=== PATIENT | female | born 1940 | race Caucasian/White ===

== ENCOUNTER → 2016-12-02 | Outpatient (CLI) | payer MEDICARE ==
--- NOTE | 2016-12-03 10:50 | MM ---
Reason for exam: clinical finding. Last mammogram was performed 1 year and 1 month ago. History: Patient is postmenopausal and has history of other cancer at age 58. Family history of breast cancer in mother at age 38. Excisional biopsy of both breasts, 1979. Physical Findings: Nurse Summary: A 1cm nodule in the left breast at 1 o'clock (nurse santiago). MG 3D Diag Mammo W/Cad ADELAIDA Bilateral CC and MLO view(s) were taken. Prior study comparison: November 04, 2015, bilateral MG 3d screening mammo w/cad. October 24, 2014, right breast MG work up mamm w CAD RT. The breast tissue is heterogeneously dense. This may lower the sensitivity of mammography. Stable benign calcifications. There is chronic nodularity bilaterally. There is no dominant lesion. No significant new findings when compared with previous films. These results were verbally communicated with the patient and result sheet given to the patient on 12/02/16. ASSESSMENT: Incomplete: need additional imaging evaluation, BI-RAD 0 RECOMMENDATION: Ultrasound of the left breast.
--- NOTE | 2016-12-03 10:53 | USB ---
Reason for exam: clinical finding. History: Patient is postmenopausal and has history of other cancer at age 58. Family history of breast cancer in mother at age 38. Excisional biopsy of both breasts, 1979. US Breast LT Left breast ultrasound includes all four quadrants, the retroareolar region and axilla. Finding demonstrate a 0.4 x 0.5 x 0.2cm too small to characterize lesion at 1 o'clock. These results were verbally communicated with the patient and result sheet given to the patient on 12/02/16. ASSESSMENT: Benign, BI-RAD 2 RECOMMENDATION: Routine screening mammogram of both breasts in 1 year. Manage patient on a clinical basis.
== END | disposition home or self-care (01) ==
LOC: RADMAMWWP 13:41
PROVIDERS: ATTEND Family Medicine
DX: N63 Unspecified lump in breast (principal); N64.4 Mastodynia
CPT/HCPCS: 76641; G0204; G0279

== ENCOUNTER → 2017-04-26 | Outpatient (CLI) | payer MEDICARE ==
--- NOTE | 2017-04-26 09:24 | CT ---
EXAMINATION TYPE: CT brain wo con DATE OF EXAM: 04/26/2017 COMPARISON: NONE HISTORY: Headache CT DLP: 1064 mGycm Automated exposure control for dose reduction was used. FINDINGS: There is no acute intracranial hemorrhage or midline shift identified. There is diffuse ventricular a nd sulcal prominence consistent with diffuse age-related cerebral atrophy. There is low-attenuation in the periventricular white matter consistent with chronic small vessel ischemic change. Additionall y there are 3 old lacunar injuries within the right basal ganglia involving the caudate head measurin g 4.4 mm, the right lentiform nucleus measuring 3.4 mm, and the right lentiform nucleus measuring 3.5 mm. Left frontal lobe blas radiata lacunar injury is also seen. These are all CSF attenuated and c hronic. The globes are intact. There is near complete opacification of the left maxillary sinus despite left and right antrostomy defects. There is also seen medial complex occlusion. Michelle bullosa seen on the left. Remaining paranasal sinuses and mastoid air cells are well aerated. No middle ear cavity fluid . Atherosclerosis is seen of the intracranial vasculature. Calvarium is intact. IMPRESSION: 1. No acute intracranial hemorrhage or midline shift. 2. Near complete opacification of the left maxillary sinus with ostiomeatal occlusion despite postope rative change. 3. Multiple old bilateral lacunar injuries. 4. Diffuse age-related cerebral atrophy and chronic small vessel ischemic change, most commonly on th e basis of chronic microangiopathy.
== END | disposition home or self-care (01) ==
LOC: RADCTMAIN 08:28
PROVIDERS: ATTEND Family Medicine
DX: G31.9 Degenerative disease of nervous system, unspecified (principal); I67.82 Cerebral ischemia; I73.89 Other specified peripheral vascular diseases
CPT/HCPCS: 70450

== ENCOUNTER 2021-01-29 10:42 | Emergency (ER) | payer MEDICARE ==
[2021-01-29 10:59] VITALS: TEMP 98.1
[2021-01-29] MEDS ORDERED: MORPHINE SULFATE 2 MG/ML SYRINGE IM STA (11:09)
--- NOTE | 2021-01-29 12:11 | XR ---
EXAM TYPE: LUMBAR SPINE X RAY SERIES COMPARISON: NONE HISTORY: Pain TECHNIQUE: 4 views are submitted. FINDINGS: Diffuse osteopenia. Surgical clips right upper quadrant. Curvature of the spine. Grade 1 anterolisthe sis L4 on L5 and L5-S1 with multilevel facet arthropathy and severe degenerative disc disease. Vascul ar calcifications noted. There is a 4 mm retrolisthesis of L2 relative to L3. Mild superior endplate compression fracture deformity at L2 indeterminate age. IMPRESSION: 1. Multilevel severe degenerative disc disease and facet arthropathy at this level. There is a mild s uperior endplate compression deformity L2 of indeterminate age.
--- NOTE | 2021-01-29 12:14 | XR ---
EXAMINATION TYPE: XR Hip Bilateral and AP pelvis DATE OF EXAM: 01/29/2021 COMPARISON: NONE HISTORY: Pain TECHNIQUE: A single AP view of the pelvis is obtained. Two views of the bilateral hip are obtained. FINDINGS: There is no acute fracture/dislocation evident in the pelvis. Surgical clip in the pelvis. Osteitis pubis. SI joints symmetric. Degenerative change lower lumbar spine. IMPRESSION: 1. No acute fracture.
--- NOTE | 2021-01-29 12:18 | ED ---
Back Pain HPI - General Chief Complaint: Back Pain/Injury Stated Complaint: AMS Time Seen by Provider: 01/29/21 11:03 Source: family, RN notes reviewed Limitations: no limitations - History of Present Illness Initial Comments: Patient is an 80-year-old female that presents to the emergency room with low back and buttock pain. She is demented per son and is a poor historian. Son notes that fall was witnessed at the shop by one of the workers. Worker notes that patient fell on her but did not hit her head or loss consciousness. Son is also concerned for possible UTI as she has had in the past. Patient was otherwise well-appearing stated that her pain was very minimal. She denied chest pendulous breath headache nausea vomiting diarrhea constipation fever fatigue chills. - Related Data Home Medications Medication Instructions Recorded Confirmed Aspirin EC [Ecotrin Low Dose] 81 mg PO DAILY 12/23/14 12/23/14 Donepezil HCl 10 mg PO DAILY 12/23/14 12/23/14 Multivitamins, Thera [Multivitamin 1 tab PO DAILY 12/23/14 12/23/14 (formulary)] Tolterodine ER [Detrol LA] 2 mg PO DAILY 12/23/14 12/23/14 Citalopram Hydrobromide [CeleXA] 10 mg PO DAILY 06/09/20 10/05/20 Donepezil [Aricept] 10 mg PO DAILY 06/09/20 10/05/20 Meclizine [Antivert] 12.5 mg PO TID 06/09/20 10/05/20 amLODIPine [Norvasc] 5 mg PO DAILY 06/09/20 10/05/20 Atorvastatin Calcium [Lipitor] 10 mg PO DAILY 07/31/20 10/05/20 Acetaminophen Tab [Tylenol] 325 mg PO DAILY 10/05/20 10/05/20 Acetaminophen/Diphenhydramine 1 tab PO HS 10/05/20 10/05/20 [Tylenol PM 500-25mg] Methenamine/Sodium Salicylate [Azo 2 tab PO DAILY PRN 10/05/20 10/05/20 Urinary Tract Defense Tab] Primidone [Mysoline] 50 mg PO HS 10/05/20 10/05/20 QUEtiapine FUMARATE [SEROquel] 25 mg PO BID 10/05/20 10/05/20 Previous Rx's Medication Instructions Recorded Atorvastatin [Lipitor] 20 mg PO DAILY #30 tab 12/24/14 Omeprazole [PriLOSEC] 20 mg PO BID #60 capsule. 12/24/14 amLODIPine [Norvasc] 5 mg PO DAILY #30 tab 12/24/14 Aspirin EC [Ecotrin Low Dose] 81 mg PO DAILY #30 tablet. 06/11/20 Propranolol [Inderal] 10 mg PO TID #90 tab 06/12/20 Nitrofurantoin Monohyd/M-Cryst 100 mg PO Q12HR #10 cap 10/05/20 [Macrobid] Cephalexin [Keflex] 500 mg PO Q6HR #40 cap 01/29/21 Allergies Allergy/AdvReac Type Severity Reaction Status Date / Time latex Allergy Swelling Verified 01/29/21 11:09 Review of Systems ROS Statement: Those systems with pertinent positive or pertinent negative responses have been documented in the HPI. ROS Other: All systems not noted in ROS Statement are negative. Past Medical History Past Medical History: Asthma, Cancer, Chest Pain / Angina, Dementia, GERD/Reflux, Hyperlipidemia, Hypertension, Memory Impairment, Sleep Apnea/CPAP/BIPAP, Thyroid Disorder Additional Past Medical History / Comment(s): Recent episodes of agitated "spells", bronchitis, osteoporosis, urinary incontinence/cystocele/prolapse, severe GERD, CHELSEA but will not use device, thyroid nodule, skin cancer. COVID 02/14 History of Any Multi-Drug Resistant Organisms: None Reported Past Surgical History: Breast Surgery, Cholecystectomy, Hysterectomy, Joint Replacement Additional Past Surgical History / Comment(s): R breast benign lumpectomy, skin cancer removals, sinus surgery Past Anesthesia/Blood Transfusion Reactions: No Reported Reaction Past Psychological History: Anxiety, No Psychological Hx Reported Past Alcohol Use History: None Reported, Occasional Additional Past Alcohol Use History / Comment(s): Pt denies ever smoking. She has a glass of wine most evenings. - Past Family History Mother Family Medical History: Cancer Additional Family Medical History / Comment(s): Mother at 36 yrs from uterine/breast cancer. Father Family Medical History: Cancer Additional Family Medical History / Comment(s): Father of liver cancer in his 60s. General Exam Limitations: altered mental status (Pleasantly demented) General appearance: alert, in no apparent distress Head exam: Present: atraumatic, normocephalic, normal inspection Eye exam: Present: normal appearance, PERRL, EOMI. Absent: scleral icterus, conjunctival injection, periorbital swelling ENT exam: Present: normal exam, mucous membranes moist Neck exam: Present: normal inspection Respiratory exam: Present: normal lung sounds bilaterally. Absent: respiratory distress, wheezes, rales, rhonchi, stridor Cardiovascular Exam: Present: regular rate, normal rhythm, normal heart sounds. Absent: systolic murmur, diastolic murmur, rubs, gallop, clicks Extremities exam: Present: normal inspection, full ROM, normal capillary refill. Absent: tenderness, pedal edema, joint swelling, calf tenderness Back exam: Present: normal inspection. Absent: tenderness Neurological exam: Present: alert, oriented X3 Psychiatric exam: Present: normal affect, normal mood Skin exam: Present: warm, dry, intact, normal color. Absent: rash Course Vital Signs 01/29/21 10:54 Temperature 98.1 F Pulse Rate 66 Respiratory 16 Rate Blood Pressure 147/74 O2 Sat by Pulse 97 Oximetry Medical Decision Making - Medical Decision Making 80-year-old female status post fall onto her butt, weakness, no blood thinners. X-ray lumbar spine, x-ray of the bilateral hips and pelvis, 15 g Toradol, urinalysis ordered. X-rays negative for any acute fractures or dislocations possible L2 compression fracture age undetermined. Urinalysis shows large quantity his white blood cells and many bacteria. 1 g Rocephin ordered. Antibiotics sent to pharmacy. Case discussed with Dr. Brown, patient can discharge home. - Lab Data Lab Results 01/29/21 Range/Units 11:22 Urine Color Yellow Urine Appearance Cloudy H (Clear) Urine pH 6.0 (5.0-8.0) Ur Specific [place] 1.020 (1.001-1.035) Urine Protein Trace H (Negative) Urine Glucose (UA) Negative (Negative) Urine Ketones Negative (Negative) Urine Blood Negative (Negative) Urine Nitrite Positive H (Negative) Urine Bilirubin Negative (Negative) Urine Urobilinogen <2.0 (<2.0) mg/dL Ur Leukocyte Esterase Large H (Negative) Urine RBC 9 H (0-5) /hpf Urine WBC >182 H (0-5) /hpf Urine WBC Clumps Few H (None) /hpf Ur Squamous Epith Cells <1 (0-4) /hpf Urine Bacteria Many H (None) /hpf Urine Mucus Rare H (None) /hpf - Radiology Data Radiology results: report reviewed, image reviewed X-ray of the bilateral hips and pelvis: No acute fracture. X-ray of the lumbar spine: Multilevel severe degenerative disc disease and facet arthropathy at a slow. There is a mild superior endplate compression deformity L2 of indeterminate age. Disposition Clinical Impression: Mechanical back pain, Fall, Urinary tract infection Disposition: HOME SELF-CARE Condition: Stable Instructions (If sedation given, give patient instructions): Acute Low Back Pain (ED), Urinary Tract Infection in Women (ED) Additional Instructions: Please return to the Emergency Department if symptoms worsen or any other concerns. Follow-up with primary care 1-2 days. Take antibiotics as prescribed. Is patient prescribed a controlled substance at d/c from ED?: No Referrals: Laura Perez MD [Primary Care Provider] - 1-2 days Time of Disposition: 12:46
[2021-01-29 12:27] LABS: Appearance,Urine Cloudy (Clear); Bacteria,Urine Many /hpf; Bilirubin,Urine Negative (Negative); Blood,Urine Negative (Negative); Color,Urine Yellow; Glucose,Urine (UA) Negative (Negative); Ketones,Urine Negative (Negative); Leukocyte Esterase,Urine Large (Negative); Mucus,Urine Rare /hpf; Nitrite,Urine Positive (Negative); Protein,Urine Trace (Negative); RBC,Urine 9 /hpf (0-5); Squamous Epithelial Cell,Urine <1 /hpf (0-4); Urobilinogen,Urine <2.0 mg/dL (<2.0); WBC,Urine >182 /hpf (0-5)
[2021-01-29] MEDS ORDERED: cefTRIAXone 1,000 MG VIAL (IM USE) IM STA (12:39)
[2021-01-29 13:02] VITALS: BP 152/84; PULSE 59; RESP 18
== END 2021-01-29 13:07 | disposition home or self-care (01) ==
LOC: EC 10:42 → MERGE 10:42 → EC 13:07
DX: N39.0 Urinary tract infection, site not specified (principal); M54.9 Dorsalgia, unspecified; I10 Essential (primary) hypertension; J45.909 Unspecified asthma, uncomplicated; K21.9 Gastro-esophageal reflux disease without esophagitis; F03.90 Unspecified dementia, unspecified severity, without behavioral disturbance, psychotic disturbance, mood disturbance, and anxiety; E78.5 Hyperlipidemia, unspecified; Z79.82 Long term (current) use of aspirin; Z79.899 Other long term (current) drug therapy; Z80.3 Family history of malignant neoplasm of breast; Z90.49 Acquired absence of other specified parts of digestive tract
CPT/HCPCS: 99284 ×2; 96372 ×2; 81001; 87086; 87077; 87186; 72100; 73521; J0696

== ENCOUNTER 2021-02-01 18:25 | Inpatient (IN) | payer MEDICARE ==
[2021-02-01 20:55] LABS: Basophils % (A) 1 %; Eosinophils # (A) 0.5 k/uL (0-0.7); Eosinophils % (A) 10 %; HCT 37.5 % (34.0-46.0); HGB 12.8 gm/dL (11.4-16.0); Lymphocytes # (A) 1.4 k/uL (1.0-4.8); Lymphocytes % (A) 30 %; MCHC 34.3 g/dL (31.0-37.0); MCV 90.5 fL (80.0-100.0); Mean Platelet Volume 8.9; Monocytes # (A) 0.2 k/uL (0-1.0); Monocytes % (A) 5 %; Neutrophils # (A) 2.3 k/uL (1.3-7.7); Neutrophils % (A) 51 %; Platelet Count 164 k/uL (150-450); RBC 4.14 m/uL (3.80-5.40); RDW 12.9 % (11.5-15.5); WBC 4.5 k/uL (3.8-10.6)
[2021-02-01 21:12] LABS: Partial Thromboplastin Time 22.1 sec (22.0-30.0); Prothrombin Time 10.6 sec (9.0-12.0)
[2021-02-01 21:21] LABS: Albumin 3.7 g/dL (3.5-5.0); Potassium 3.9 mmol/L (3.5-5.1); Total Bilirubin 0.3 mg/dL (0.2-1.3)
--- NOTE | 2021-02-01 21:22 | ED ---
General Adult HPI - General Chief complaint: Urogenital Stated complaint: UTI Time Seen by Provider: 02/01/21 19:57 Source: patient, family Mode of arrival: ambulatory Limitations: no limitations - History of Present Illness Initial comments: 80-year-old female patient presents to the emergency department today for evaluation of altered mental status and agitation. She was recently evaluated for urinary tract infection discharged home with antibiotics. Son states over the last 2 days she has had episodes where she becomes angry and hits him and her . Today she took off walking in the neighborhood and was found three blocks from her house. States that she seems more confused than usual. They deny any fever or chills. Denies nausea or vomiting. Patient denies any abdominal pain or back pain. She is reporting left neck pain. She has had a couple falls over the last few weeks and she did have an injection of antibiotic in the left gluteal region during her last visit. Patient denies any recent rash, cough, shortness of breath, chest pain, abdominal pain, diarrhea, constipation, back pain, numbness, tingling, dizziness, weakness, headache, visual changes, or any other complaints. - Related Data Home Medications Medication Instructions Recorded Confirmed Citalopram Hydrobromide [CeleXA] 10 mg PO DAILY 06/09/20 02/01/21 Donepezil [Aricept] 10 mg PO DAILY 06/09/20 02/01/21 Atorvastatin Calcium [Lipitor] 10 mg PO DAILY 07/31/20 02/01/21 Primidone [Mysoline] 50 mg PO HS 10/05/20 02/01/21 QUEtiapine FUMARATE [SEROquel] 25 mg PO BID 10/05/20 02/01/21 Previous Rx's Medication Instructions Recorded amLODIPine [Norvasc] 5 mg PO DAILY #30 tab 12/24/14 Cephalexin [Keflex] 500 mg PO Q6HR #40 cap 01/29/21 Allergies Allergy/AdvReac Type Severity Reaction Status Date / Time latex Allergy Swelling Verified 02/01/21 20:58 Review of Systems ROS Statement: Those systems with pertinent positive or pertinent negative responses have been documented in the HPI. ROS Other: All systems not noted in ROS Statement are negative. Past Medical History Past Medical History: Asthma, Cancer, Chest Pain / Angina, Dementia, GERD/Reflux, Hyperlipidemia, Hypertension, Memory Impairment, Sleep Apnea/CPAP/BIPAP, Thyroid Disorder Additional Past Medical History / Comment(s): Recent episodes of agitated "spells", bronchitis, osteoporosis, urinary incontinence/cystocele/prolapse, severe GERD, CHELSEA but will not use device, thyroid nodule, skin cancer. COVID 02/14 History of Any Multi-Drug Resistant Organisms: None Reported Past Surgical History: Breast Surgery, Cholecystectomy, Hysterectomy, Joint Replacement Additional Past Surgical History / Comment(s): R breast benign lumpectomy, skin cancer removals, sinus surgery Past Anesthesia/Blood Transfusion Reactions: No Reported Reaction Past Psychological History: Anxiety, No Psychological Hx Reported Smoking Status: Never smoker Past Alcohol Use History: None Reported, Occasional Past Drug Use History: None Reported - Past Family History Mother Family Medical History: Cancer Additional Family Medical History / Comment(s): Mother at 36 yrs from uter ine/breast cancer. Father Family Medical History: Cancer Additional Family Medical History / Comment(s): Father of liver cancer in his 60s. General Exam Limitations: no limitations General appearance: alert, in no apparent distress, other (This is a well- developed, well-nourished elderly female patient in no acute distress.) ENT exam: Present: normal exam, normal oropharynx, mucous membranes moist Respiratory exam: Present: normal lung sounds bilaterally. Absent: respiratory distress, wheezes, rales, rhonchi, stridor Cardiovascular Exam: Present: regular rate, normal rhythm, normal heart sounds. Absent: systolic murmur, diastolic murmur, rubs, gallop, clicks GI/Abdominal exam: Present: soft, normal bowel sounds. Absent: distended, tenderness, guarding, rebound, rigid Neurological exam: Present: alert, CN II-XII intact. Absent: oriented X3 (Oriented 1) Psychiatric exam: Present: normal affect, normal mood Skin exam: Present: warm, dry, intact, normal color. Absent: rash Course Vital Signs 02/01/21 02/01/21 19:13 21:10 Temperature 97.9 F Pulse Rate 66 66 Respiratory 22 19 Rate Blood Pressure 160/73 O2 Sat by Pulse 97 98 Oximetry EKG Findings - EKG Comments: EKG Findings:: EKG obtained at 2051 shows sinus bradycardia with a ventricular rate of 59, KS interval 166, QRS duration 74, QTC 414, QTC 409. No evidence of ST elevation or depression. Medical Decision Making - Medical Decision Making 80-year-old female patient presents to the emergency department today for evaluation of increased altered mental status last couple of days. Recently diagnosed with UTI. Labs reviewed and revealed normal white blood cell, normal urine at this time. CT brain negative. Patient is confused. She'll be admitted to the hospital for further evaluation by neurology. We'll continue IV antibiotics as her previous urine was positive for UTI with positive culture. Patient family is agreeable to plan. Case discussed with my attending Dr. Hodges. - Lab Data Result diagrams: 02/01/21 20:38 02/01/21 20:38 Lab Results 02/01/21 02/01/21 02/01/21 Range/Units 20:38 20:38 20:38 WBC 4.5 (3.8-10.6) k/uL RBC 4.14 (3.80-5.40) m/uL Hgb 12.8 (11.4-16.0) gm/dL Hct 37.5 (34.0-46.0) % MCV 90.5 (80.0-100.0) fL MCH 31.0 (25.0-35.0) pg MCHC 34.3 (31.0-37.0) g/dL RDW 12.9 (11.5-15.5) % Plt Count 164 (150-450) k/uL MPV 8.9 Neutrophils % 51 % Lymphocytes % 30 % Monocytes % 5 % Eosinophils % 10 % Basophils % 1 % Neutrophils # 2.3 (1.3-7.7) k/uL Lymphocytes # 1.4 (1.0-4.8) k/uL Monocytes # 0.2 (0-1.0) k/uL Eosinophils # 0.5 (0-0.7) k/uL Basophils # 0.0 (0-0.2) k/uL PT (9.0-12.0) sec INR (<1.2) APTT (22.0-30.0) sec Sodium 135 L (137-145) mmol/L Potassium 3.9 (3.5-5.1) mmol/L Chloride 104 (98-107) mmol/L Carbon Dioxide 27 (22-30) mmol/L Anion Gap 4 mmol/L BUN 24 H (7-17) mg/dL Creatinine 0.86 (0.52-1.04) mg/dL Est GFR (CKD-EPI)AfAm 73 (>60 ml/min/1.73 sqM) Est GFR (CKD-EPI)NonAf 64 (>60 ml/min/1.73 sqM) Glucose 104 H (74-99) mg/dL Plasma Lactic Acid Jose A (0.7-2.0) mmol/L Calcium 9.0 (8.4-10.2) mg/dL Total Bilirubin 0.3 (0.2-1.3) mg/dL AST 25 (14-36) U/L ALT 12 (4-34) U/L Alkaline Phosphatase 40 (38-126) U/L Troponin I (0.000-0.034) ng/mL Total Protein 7.0 (6.3-8.2) g/dL Albumin 3.7 (3.5-5.0) g/dL Urine Color Yellow Urine Appearance Clear (Clear) Urine pH 5.5 (5.0-8.0) Ur Specific [place] 1.027 (1.001-1.035) Urine Protein Trace H (Negative) Urine Glucose (UA) Negative (Negative) Urine Ketones Negative (Negative) Urine Blood Negative (Negative) Urine Nitrite Negative (Negative) Urine Bilirubin Negative (Negative) Urine Urobilinogen 2.0 (<2.0) mg/dL Ur Leukocyte Esterase Trace H (Negative) Urine RBC 1 (0-5) /hpf Urine WBC 5 (0-5) /hpf Ur Squamous Epith Cells <1 (0-4) /hpf Hyaline Casts 1 (0-2) /lpf Urine Mucus Few H (None) /hpf Coronavirus (PCR) (Not Detectd) 02/01/21 02/01/21 02/01/21 Range/Units 20:38 20:38 20:38 WBC (3.8-10.6) k/uL RBC (3.80-5.40) m/uL Hgb (11.4-16.0) gm/dL Hct (34.0-46.0) % MCV (80.0-100.0) fL MCH (25.0-35.0) pg MCHC (31.0-37.0) g/dL RDW (11.5-15.5) % Plt Count (150-450) k/uL MPV Neutrophils % % Lymphocytes % % Monocytes % % Eosinophils % % Basophils % % Neutrophils # (1.3-7.7) k/uL Lymphocytes # (1.0-4.8) k/uL Monocytes # (0-1.0) k/uL Eosinophils # (0-0.7) k/uL Basophils # (0-0.2) k/uL PT 10.6 (9.0-12.0) sec INR 1.0 (<1.2) APTT 22.1 (22.0-30.0) sec Sodium (137-145) mmol/L Potassium (3.5-5.1) mmol/L Chloride (98-107) mmol/L Carbon Dioxide (22-30) mmol/L Anion Gap mmol/L BUN (7-17) mg/dL Creatinine (0.52-1.04) mg/dL Est GFR (CKD-EPI)AfAm (>60 ml/min/1.73 sqM) Est GFR (CKD-EPI)NonAf (>60 ml/min/1.73 sqM) Glucose (74-99) mg/dL Plasma Lactic Acid Jose A 0.7 (0.7-2.0) mmol/L Calcium (8.4-10.2) mg/dL Total Bilirubin (0.2-1.3) mg/dL AST (14-36) U/L ALT (4-34) U/L Alkaline Phosphatase (38-126) U/L Troponin I <0.012 (0.000-0.034) ng/mL Total Protein (6.3-8.2) g/dL Albumin (3.5-5.0) g/dL Urine Color Urine Appearance (Clear) Urine pH (5.0-8.0) Ur Specific [place] (1.001-1.035) Urine Protein (Negative) Urine Glucose (UA) (Negative) Urine Ketones (Negative) Urine Blood (Negative) Urine Nitrite (Negative) Urine Bilirubin (Negative) Urine Urobilinogen (<2.0) mg/dL Ur Leukocyte Esterase (Negative) Urine RBC (0-5) /hpf Urine WBC (0-5) /hpf Ur Squamous Epith Cells (0-4) /hpf Hyaline Casts (0-2) /lpf Urine Mucus (None) /hpf Coronavirus (PCR) (Not Detectd) 02/01/21 Range/Units 21:17 WBC (3.8-10.6) k/uL RBC (3.80-5.40) m/uL Hgb (11.4-16.0) gm/dL Hct (34.0-46.0) % MCV (80.0-100.0) fL MCH (25.0-35.0) pg MCHC (31.0-37.0) g/dL RDW (11.5-15.5) % Plt Count (150-450) k/uL MPV Neutrophils % % Lymphocytes % % Monocytes % % Eosinophils % % Basophils % % Neutrophils # (1.3-7.7) k/uL Lymphocytes # (1.0-4.8) k/uL Monocytes # (0-1.0) k/uL Eosinophils # (0-0.7) k/uL Basophils # (0-0.2) k/uL PT (9.0-12.0) sec INR (<1.2) APTT (22.0-30.0) sec Sodium (137-145) mmol/L Potassium (3.5-5.1) mmol/L Chloride (98-107) mmol/L Carbon Dioxide (22-30) mmol/L Anion Gap mmol/L BUN (7-17) mg/dL Creatinine (0.52-1.04) mg/dL Est GFR (CKD-EPI)AfAm (>60 ml/min/1.73 sqM) Est GFR (CKD-EPI)NonAf (>60 ml/min/1.73 sqM) Glucose (74-99) mg/dL Plasma Lactic Acid Jose A (0.7-2.0) mmol/L Calcium (8.4-10.2) mg/dL Total Bilirubin (0.2-1.3) mg/dL AST (14-36) U/L ALT (4-34) U/L Alkaline Phosphatase (38-126) U/L Troponin I (0.000-0.034) ng/mL Total Protein (6.3-8.2) g/dL Albumin (3.5-5.0) g/dL Urine Color Urine Appearance (Clear) Urine pH (5.0-8.0) Ur Specific [place] (1.001-1.035) Urine Protein (Negative) Urine Glucose (UA) (Negative) Urine Ketones (Negative) Urine Blood (Negative) Urine Nitrite (Negative) Urine Bilirubin (Negative) Urine Urobilinogen (<2.0) mg/dL Ur Leukocyte Esterase (Negative) Urine RBC (0-5) /hpf Urine WBC (0-5) /hpf Ur Squamous Epith Cells (0-4) /hpf Hyaline Casts (0-2) /lpf Urine Mucus (None) /hpf Coronavirus (PCR) Not Detected (Not Detectd) - Radiology Data Radiology results: report reviewed, image reviewed 1 x-ray of the chest is obtained. Report was reviewed in its entirety. Impression by Dr. Diaz shows no active cardiopulmonary disease. His improved inspiration compared to last exam. 3 views of the left hip and pelvis are obtained. Report reviewed in its entirety. Impression by Dr. Diaz shows negative pelvis multiple exam. No fracture. CT brain C-spine without contrast was obtained. Report is reviewed in its entirety. Impression by Dr. Diaz so Gonzalez atrophy. No acute intracranial abnormality. Left-sided seen right sinusitis. No change compared to old exam. Cervical spondylotic changes. No fracture. Disposition Clinical Impression: Altered mental status, UTI (urinary tract infection) Disposition: ADMITTED IP TO THIS [facility] Condition: Serious Decision to Admit Reason: Admit from EC Decision Date: 02/01/21 Decision Time: 22:54
[2021-02-01 21:38] LABS: Appearance,Urine Clear (Clear); Bilirubin,Urine Negative (Negative); Blood,Urine Negative (Negative); Color,Urine Yellow; Glucose,Urine (UA) Negative (Negative); Hyaline Casts,Urine 1 /lpf (0-2); Ketones,Urine Negative (Negative); Leukocyte Esterase,Urine Trace (Negative); Mucus,Urine Few /hpf; Nitrite,Urine Negative (Negative); PH, Urine 5.5 (5.0-8.0); Protein,Urine Trace (Negative); RBC,Urine 1 /hpf (0-5); Specific Gravity,Urine 1.027 (1.001-1.035); Squamous Epithelial Cell,Urine <1 /hpf (0-4); WBC,Urine 5 /hpf (0-5)
--- NOTE | 2021-02-01 21:52 | CT ---
EXAMINATION TYPE: CT brain leigha ojy con DATE OF EXAM: 02/01/2021 COMPARISON: 07/31/2020 HISTORY: Patient poor historian. CT DLP: 1378.9 mGycm Automated exposure control for dose reduction was used. There is cerebral atrophy. There is no mass effect nor midline shift. There is no sign of intracrania l hemorrhage. Calvarium is intact. There is some mucosal thickening in the left side sphenoid sinus. I see no focal bone destruction. Cervical vertebra show some degenerative subluxation deformity at C4-5 and C5-6. There is hypertrophi c multilevel cervical facet arthropathy. There is no compression fracture. Prevertebral soft tissues are intact. IMPRESSION: Cerebral atrophy. No acute intracranial abnormality. Left side sphenoid sinusitis. No change compared to old exam. Cervical spondylotic changes. No fracture.
--- NOTE | 2021-02-01 21:53 | XR ---
EXAMINATION TYPE: XR Hip LT and AP Pelvis DATE OF EXAM: 02/01/2021 COMPARISON: NONE HISTORY: Left buttock pain TECHNIQUE: 3 views FINDINGS: Pelvic ring is intact. Proximal left femur and hip joint appear intact. There is no hip dys plasia. There is surgical clip in the pelvis. Sacroiliac joints are intact. IMPRESSION: Negative pelvis and left hip exam. No fracture.
--- NOTE | 2021-02-01 21:56 | XR ---
EXAMINATION TYPE: XR chest 1V DATE OF EXAM: 02/01/2021 COMPARISON: 02/05/2021 HISTORY: Hip fracture TECHNIQUE: Single view FINDINGS: Heart and mediastinum are normal. Lungs are clear of consolidation. There are no hilar mass es. Bony thorax is intact. There are chest leads. IMPRESSION: No active cardiopulmonary disease. There is improved inspiration compared to last exam
[2021-02-01] MEDS ORDERED: cefTRIAXone IN SWFI 1,000 MG/10 ML SYRINGE IVP STA (22:51)
[2021-02-01] MEDS ORDERED: NALOXONE 0.4 MG/ML 1 ML VIAL IV PRN (22:52)
[2021-02-01] MEDS ORDERED: LORazepam 2 MG/ML INJ IV STA (23:50)
[2021-02-02] MEDS ORDERED: LORazepam 2 MG/ML INJ IV PRN (02:25)
--- NOTE | 2021-02-02 11:04 | P.CNNES ---
History of Present Illness Consult date: 02/02/21 Requesting physician: Kate Gonzáles Reason for Consult: altered mental status History of Present Illness: This is an 80-year-old woman with history of stroke (old right basal ganglia), essential tremor, cognitive impairment/dementia, urinary tract infection, hypertension, osteoporosis and urinary incontinence assented that to the emergency department on the 02/01/2021 for altered mental status and the agitation. History is obtained from medical record. Per the ED note the patient was recently [facility] for ureter tract infection discharged home with antibiotic. In the last 2 days she's become more angry and hostile to her [place] seemed more confused than usual recently. Per the ED note, the notice that that she's been having a couple falls over the last few weeks and it's reported the per the ED note that she had injection of antibiotic not her left gluteal region on her last visit. Per ED noted she denies of any headache, visual disturbance, any tingling, dizziness. Upon seeing the patient as she was not able to me any history. Was last seen by myself in our facility on 06/12/2020 and that was felt the patient had altered mental status due to septic encephalopathy from her urinary tract infection. And her mentation has improved that. Was recommended for the patient to be seen as an outpatient by neurologist and to have a neuropsych evaluation regarding her cognitive impairment dementia. She had an EEG in the 06/09/2020 and the the background slowing suggestive of moderate encephalopathy and there were no focal slowing, epileptiform discharges or seizure on EEG. Please review my note for further details. Some of the workup in the hospital consisted of: Initial vital signs as a blood pressure of 160/73, heart rate of 66, temperature of 97.9 Fahrenheit oral, respiratory of 22 the pulse ox of 97% room air. CBC with differential is unremarkable. Sodium is 135, creatinine is 0.86, serum glucose is 104, calcium is 9.0, AST 25, ALT of 12. Urinalysis is the leukocyte esterase is trace, urine white blood cells 5. Rush virus is nondetected. EKG of the head is reported as cerebral atrophy. No acute intracranial abnormality. Left-sided sphenoid sinusitis at. No change compared to old exam. Personally reviewed the CT of the head and there is no acute or subacute ischemia and there is no typical hemorrhage that I was able to appreciate that. CT cervical spine is reported cervical spondylosis changes at. No fracture. Review of Systems Review of system: The 12 point system was reviewed and apparent positive and negative per HPI. Past Medical History Past Medical History: Asthma, Cancer, Chest Pain / Angina, Dementia, GERD/Reflux, Hyperlipidemia, Hypertension, Memory Impairment, Sleep Apnea/CPAP/BIPAP, Thyroid Disorder Additional Past Medical History / Comment(s): Recent episodes of agitated "spells", bronchitis, osteoporosis, urinary incontinence/cystocele/prolapse, severe GERD, CHELSEA but will not use device, thyroid nodule, skin cancer. COVID 02/14 History of Any Multi-Drug Resistant Organisms: None Reported Past Surgical History: Breast Surgery, Cholecystectomy, Hysterectomy, Joint Replacement Additional Past Surgical History / Comment(s): R breast benign lumpectomy, skin cancer removals, sinus surgery Past Anesthesia/Blood Transfusion Reactions: No Reported Reaction Past Psychological History: Anxiety, No Psychological Hx Reported Smoking Status: Never smoker Past Alcohol Use History: None Reported, Occasional Past Drug Use History: None Reported - Past Family History Mother Family Medical History: Cancer Additional Family Medical History / Comment(s): Mother at 36 yrs from uterine/breast cancer. Father Family Medical History: Cancer Additional Family Medical History / Comment(s): Father of liver cancer in his 60s. Medications and Allergies Home Medications Medication Instructions Recorded Confirmed Type amLODIPine [Norvasc] 5 mg PO DAILY #30 tab 12/24/14 02/01/21 Rx Citalopram Hydrobromide [CeleXA] 10 mg PO DAILY 06/09/20 02/01/21 History Donepezil [Aricept] 10 mg PO DAILY 06/09/20 02/01/21 History Atorvastatin Calcium [Lipitor] 10 mg PO DAILY 07/31/20 02/01/21 History Primidone [Mysoline] 50 mg PO HS 10/05/20 02/01/21 History QUEtiapine FUMARATE [SEROquel] 25 mg PO BID 10/05/20 02/01/21 History Cephalexin [Keflex] 500 mg PO Q6HR #40 cap 01/29/21 02/01/21 Rx Allergies Allergy/AdvReac Type Severity Reaction Status Date / Time latex Allergy Swelling Verified 02/01/21 20:58 Physical Examination - Vital Signs Vital Signs: Vital Signs Temp Pulse Pulse Resp BP BP Pulse Ox 02/02/21 08:10 97.7 F 68 20 174/76 95 02/02/21 07:06 68 18 177/89 96 02/02/21 00:23 65 20 167/72 97 02/01/21 21:10 66 19 160/73 98 02/01/21 19:13 97.9 F 66 22 97 Intake and Output 02/01/21 02/02/21 02/02/21 22:59 06:59 14:59 Output Total 200 Balance -200 Output: Urine 200 Straight 200 Other: Voiding Method Diaper Bedpan Diaper Weight 72.575 kg GENERAL: The patient is lying in bed and does not seem in acute distress. CHEST: The heart rate is regular rate rhythm. No murmurs to auscultation. LUNG: Clear to auscultation bilaterally no wheezing noted throughout. Not labored breathing. ABDOMEN/GI: Bowel sounds present in all 4 quadrants. No tenderness to palpation throughout. NEUROLOGICAL: Higher mental function: The patient is awake, alert, oriented to self only. She said she does not know to month, year or place. Upon showing her pen, she stated "it was something you write with". Is not following commands. Could not assess for aphasia because of limited cooperation. Cranial nerves: The pupils are round, equal and reactive to light. Visual f ields are hard to assess. Extraocular movement is tracking throughout the room. No facial weakness. Had oral tremor at baseline. Could not assess rest of cranial nerves. Motor: Gait is deferred. The strength is lifting all extremities above gravity without any appreciable focal deficit. Normal tone and bulk. She had noticeable some tremor of right upper extremity but pronouced over bilateral upper extremities with end action. Cerebellum: Normal finger to nose bilaterally. But noticeable tremor at end action. Sensation: Sensation is normal to touch throughout. Reflexes (right/left: could not assess because of cooperation. Plantars are mute bilaterally. Results - Laboratory Findings CBC and BMP: 02/01/21 20:38 02/01/21 20:38 Abnormal Lab Findings: Abnormal Labs 02/01/21 02/01/21 20:38 20:38 Sodium 135 L BUN 24 H Glucose 104 H Urine Protein Trace H Ur Leukocyte Esterase Trace H Urine Mucus Few H Assessment and Plan Assessment: Altered mental status seems to her recent underlying urinary tract infection Possible Delirium due to above Recent ureter tract infection and that she received antibiotic for it. History of hypertension and during this hospital visit seems elevated History of old lacunar stroke (small vessel disease in the right basal ganglia) Cognitive impairment/dementia Recurrent urinary tract infection Tremor seems more essential Osteoporosis Plan: In May 2020 she had the vitamin B12, folate, hemoglobin A1c and TSH which were within normal limits. We'll get a repeat TSH level. I ordered a routine EEG which likely will be done tomorrow to rule out any epileptiform discharges or seizure. If the patient continues to be confused Recommend MRI of the brain if the patient is able to lie still for it to rule out any intracranial process. Neuro checks Primary team place on Seroquel 12.5mg bid. Defer the rest of the medical management to primary team Upon discharge the patient needs to follow up with a neurologist within 1-2 weeks. Thank you for the consultation. Jhoan Stiles M.D. Neuro-hospitalist Time with Patient: Greater than 30
[2021-02-02] MEDS: amLODIPine 5 MG TAB PO SCH (11:32)
[2021-02-02] MEDS: CITALOPRAM HYDROBROMIDE 10 MG TAB PO SCH (11:32)
[2021-02-02] MEDS: PRIMIDONE 50 MG TAB PO SCH (20:21)
[2021-02-02] MEDS: QUEtiapine 25 MG TAB PO SCH (20:21)
--- NOTE | 2021-02-02 23:42 | P.HPIM ---
History of Present Illness H&P Date: 02/02/21 Chief Complaint: Altered mental status Patient is a 80-year-old female with a long history of hypertension, hyperlipidemia, GERD, asthma, memory impairment, obstructive sleep apnea not on CPAP, history of Covid pneumonia and known blood 2020, thyroid nodule and anxiety/agitated spells and dementia was brought to the hospital due to altered mental status and agitation. Patient was recently evaluated and was treated for acute urinary tract infection and discharged home with antibiotics. During the last 2 days patient has been becoming more angry and hits her . Patient took a walk in the neighborhood and was found 3 blocks from her home. She seems to be confused than usual. Patient was brought to the hospital for evaluation. Otherwise patient has been afebrile. No nausea vomiting or diarrhea. Denies abdominal pain. No neck pain or headache. Patient had falls over the last few weeks. No complaints of chest pain or shortness of breath. No cough or sputum production. CT head and cervical spine showed cerebral atrophy. No acute intracranial abnormality. Left-sided sphenoid sinusitis. No change compared to old exam. Cervical spondylitic changes. No fracture. Hip and pelvic x-ray showed negative pelvis and hip exam. No fracture. EKG showed sinus bradycardia with heart rate 59 Chest x-ray showed no active cardiopulmonary disease. Laboratory showed WBC 4.5 hemoglobin 12.8 and platelets 164 sodium 135, potassium 3.9, BUN 24 and creatinine 0.86 and blood glucose is 104 Lactic acid 0.711 ESR not elevated and TSH is 2.76 Review of Systems Complete review of systems could not be obtained from the patient at this time. Past Medical History Past Medical History: Asthma, Cancer, Chest Pain / Angina, Dementia, GERD/Reflux, Hyperlipidemia, Hypertension, Memory Impairment, Sleep Apnea/CPAP/BIPAP, Thyroid Disorder Additional Past Medical History / Comment(s): Recent episodes of agitated "spells", bronchitis, osteoporosis, urinary incontinence/cystocele/prolapse, severe GERD, CHELSEA but will not use device, thyroid nodule, skin cancer. COVID 02/14 History of Any Multi-Drug Resistant Organisms: None Reported Past Surgical History: Breast Surgery, Cholecystectomy, Hysterectomy, Joint Replacement Additional Past Surgical History / Comment(s): R breast benign lumpectomy, skin cancer removals, sinus surgery Past Anesthesia/Blood Transfusion Reactions: No Reported Reaction Past Psychological History: Anxiety, No Psychological Hx Reported Smoking Status: Never smoker Past Alcohol Use History: None Reported, Occasional Past Drug Use History: None Reported - Past Family History Mother Family Medical History: Cancer Additional Family Medical History / Comment(s): Mother at 36 yrs from uterine/breast cancer. Father Family Medical History: Cancer Additional Family Medical History / Comment(s): Father of liver cancer in his 60s. Medications and Allergies Home Medications Medication Instructions Recorded Confirmed Type amLODIPine [Norvasc] 5 mg PO DAILY #30 tab 12/24/14 02/01/21 Rx Citalopram Hydrobromide [CeleXA] 10 mg PO DAILY 06/09/20 02/01/21 History Donepezil [Aricept] 10 mg PO DAILY 06/09/20 02/01/21 History Atorvastatin Calcium [Lipitor] 10 mg PO DAILY 07/31/20 02/01/21 History Primidone [Mysoline] 50 mg PO HS 10/05/20 02/01/21 History QUEtiapine FUMARATE [SEROquel] 25 mg PO BID 10/05/20 02/01/21 History Cephalexin [Keflex] 500 mg PO Q6HR #40 cap 01/29/21 02/01/21 Rx Allergies Allergy/AdvReac Type Severity Reaction Status Date / Time latex Allergy Swelling Verified 02/01/21 20:58 Physical Exam Vitals: Vital Signs Temp Pulse Pulse Resp BP BP Pulse Ox 02/02/21 08:10 97.7 F 68 20 174/76 95 02/02/21 07:06 68 18 177/89 96 02/02/21 00:23 65 20 167/72 97 02/01/21 21:10 66 19 160/73 98 02/01/21 19:13 97.9 F 66 22 97 Intake and Output 02/01/21 02/02/21 02/02/21 22:59 06:59 14:59 Output Total 200 Balance -200 Output: Urine 200 Straight 200 Other: Voiding Method Diaper Bedpan Diaper Weight 72.575 kg PHYSICAL EXAMINATION: Altered mental status patient is lying in bed. Awake alert but confused and delirious at times... HEENT: Normocephalic. Neck is supple. Pupils reactive. Nostrils clear. Oral cavity is moist. Neck reveals no JVD, carotid bruits, or thyromegaly. CHEST EXAMINATION: Trachea is central. Symmetrical expansion. Lung larsen clear to auscultation and percussion. CARDIAC: Normal S1, S2 with no gallops. No murmurs ABDOMEN: Soft. Bowel sounds normal. No organomegaly. No abdominal bruits. Extremities: reveal no edema. No clubbing or cyanosis Neurologically awake, alert, oriented x1-2 with well-coordinated movements. No gross focal deficits noted Skin: No rash or skin lesions. Psychiatric: nonCooperative. Musculoskeletal: No joint swelling or deformity. Normal range of motion. Results CBC & Chem 7: 02/01/21 20:38 02/01/21 20:38 Labs: Abnormal Lab Results - Last 24 Hours (Table) 02/01/21 02/01/21 Range/Units 20:38 20:38 Sodium 135 L (137-145) mmol/L BUN 24 H (7-17) mg/dL Glucose 104 H (74-99) mg/dL Urine Protein Trace H (Negative) Ur Leukocyte Esterase Trace H (Negative) Urine Mucus Few H (None) /hpf Thrombosis Risk Factor Assmnt - DVT/VTE Prophylaxis DVT/VTE Prophylaxis: Pharmacologic Prophylaxis ordered Assessment and Plan Assessment: Altered mental status likely delirium Possible acute urinary tract infection. Uncontrolled hypertension Hyperlipidemia GERD Memory impairment/dementia History of thyroid nodule Obstructive sleep apnea not on CPAP at home History of COVID-19 infection in January 2020 Anxiety and bipolar disorder DVT prophylaxis Heparin subcu Plan: Patient will be continued gentle IV hydration and antibiotics in the form of ceftriaxone. Neurology was consulted due to altered mental status. Patient will be continued on home dose of Celexa and Seroquel 12.5 mg twice daily. B12, folate and A1c and TSH levels within normal limits in May 2020. Continue to follow closely. Time with Patient: Greater than 30
[2021-02-03] MEDS: HEPARIN SODIUM,PORCINE/PF 5,000 UNIT/0.5 ML SYRINGE SQ SCH ×4 (01:07→23:44)
[2021-02-03 06:17] LABS: Basophils % (A) 1 %; Eosinophils # (A) 0.3 k/uL (0-0.7); Eosinophils % (A) 8 %; HGB 13.5 gm/dL (11.4-16.0); Lymphocytes % (A) 28 %; MCH 30.2 pg (25.0-35.0); MCHC 33.7 g/dL (31.0-37.0); MCV 89.4 fL (80.0-100.0); Monocytes # (A) 0.2 k/uL (0-1.0); Monocytes % (A) 6 %; Neutrophils # (A) 1.9 k/uL (1.3-7.7); Neutrophils % (A) 54 %; Platelet Count 190 k/uL (150-450); RBC 4.48 m/uL (3.80-5.40); RDW 13.4 % (11.5-15.5); WBC 3.6 k/uL (3.8-10.6)
[2021-02-03 11:00] LABS: African American GFR (CKD) 79.6 (60.0-200.0); Anion Gap 11.3 mmol/L (4.00-12.00); BUN/Creat Ratio 17.5 Ratio (12.00-20.00); Calcium 9.2 mg/dL (8.7-10.3); Carbon Dioxide 26.7 mmol/L (21.6-31.8); Non-African American GFR(CKD) 68.7 (60.0-200.0); Potassium 4.2 mmol/L (3.5-5.5)
[2021-02-03] MEDS: amLODIPine 5 MG TAB PO SCH (11:35)
[2021-02-03] MEDS: ATORVASTATIN 10 MG TAB PO SCH (11:35)
[2021-02-03] MEDS: CITALOPRAM HYDROBROMIDE 10 MG TAB PO SCH (11:35)
[2021-02-03] MEDS: QUEtiapine 25 MG TAB PO SCH ×2 (11:35→20:58)
[2021-02-03] MEDS: DONEPEZIL 10 MG TAB PO SCH (11:36)
--- NOTE | 2021-02-03 12:41 | EEG ---
ELECTROENCEPHALOGRAM REPORT DATE OF SERVICE: 02/03/2021 CLINICAL HISTORY: This is an 80-year-old woman with altered mental status. The video EEG is obtained to evaluate for seizure epileptiform activity. RELEVANT MEDICATION: The patient is not on any antiepileptic drugs. EEG TYPE: A routine 21-channel EEG is performed with video using the 10/20 electrode placement system. DESCRIPTION: Wakefulness and drowsiness are obtained. During awake state, the background consists of low to moderate voltage of 5 to 6 hertz activity. There is no physiological stage II sleep architecture. There is no focal slowing. Interictal and ictal is none. ACTIVATION PROCEDURE: Photic stimulation and hyperventilation are not performed. CLINICAL INTERPRETATION: This is an abnormal routine EEG. The background slowing is suggestive of moderate encephalopathy. There are no focal slowing, epileptiform discharges or seizure on the EEG. Clinical correlation is recommended. THADDEUS / TIANA: [id number] / MTDD
--- NOTE | 2021-02-03 14:08 | P.PN ---
Subjective Progress Note Date: 02/03/21 Patient is seen at bedside and is accompanied by son who states patient continues to be altered and this happens whenever she has UTI. Otherwise patient feels about the same. Son feels her tremors are worse with attempting to grab things. He said patient is oriented to self and sometime place but not time. She would have random conversation. Per son the patient does follow-up with a neurologist (Dr. Salazar's team) with his N.P. and she had a lumbar puncture in the past and has fluid drained and i mproved somewhat for 1-2 days and was back to her baseline. 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 She was tried on Sinement per the son brief and she got worse. Objective - Vital Signs Vital signs: Vital Signs Temp 96.8 F L 02/03/21 06:08 Pulse 70 02/03/21 06:08 Resp 18 02/03/21 06:08 BP 155/66 02/03/21 06:08 Pulse Ox 94 L 02/03/21 06:08 Intake & Output 02/02/21 02/03/21 02/03/21 18:59 06:59 18:59 Intake Total 50 Balance 50 Intake: Intake, IV Titration 50 Amount cefTRIAXone 1 gm In 50 Sodium Chloride 0.9% 50 ml @ 100 mls/hr IVPB Q24H [facility] Rx#:[id number] Other: Voiding Method Bedpan Diaper Diaper # Voids 2 1 # Bowel Movements 0 - Exam GENERAL: The patient is lying in bed and does not seem in acute distress. NEUROLOGICAL: Higher mental function: The patient is awake, alert, oriented to self only. With options she stated she chose Hospital but could not say which. Could not tell me month. Could not name objects. Is speaking non-sensical. She followed few simple commands (closing eyes and sticking tongue out). Cranial nerves: The pupils are round, equal and reactive to light. Visual larsen are hard to assess. Extraocular movement is tracking throughout the room. No facial weakness. Had oral tremor at baseline. Could not assess rest of cranial nerves. Motor: Gait is deferred. The strength is lifting all extremities above gravity without any appreciable focal deficit. Normal tone and bulk. She had noticeable tremor of right upper extremity at rest but consistent but worsened over bilateral upper extremities with end action. Cerebellum: Normal finger to nose bilaterally. But noticeable tremor at end action. Sensation: Sensation is normal to touch throughout. Reflexes (right/left: could not assess because of cooperation. Plantars are mute bilaterally. WORK-UP: TSH: 2.760 CT of the head is reported as cerebral atrophy. No acute intracranial abnormality. Left-sided sphenoid sinusitis at. No change compared to old exam. Personally reviewed the CT of the head and there is no acute or subacute ischemia and there is no typical hemorrhage that I was able to appreciate that. CT cervical spine is reported cervical spondylosis changes at. No fracture. - Labs CBC & Chem 7: 02/03/21 05:03 02/03/21 05:03 Labs: Abnormal Lab Results - Last 24 Hours (Table) 02/03/21 Range/Units 05:03 WBC 3.6 L (3.8-10.6) k/uL Assessment and Plan Assessment: Altered mental status seems to her recent underlying urinary tract infection Possible Delirium due to above Recent ureter tract infection and that she received antibiotic for it. History of hypertension and during this hospital visit seems elevated History of old lacunar stroke (small vessel disease in the right basal ganglia) Cognitive impairment/dementia and per son she was diagnosed with borderline Alzheimer's by her outpatient neurologist Recurrent urinary tract infection Tremor seems more essential Osteoporosis Plan: In May 2020 she had the vitamin B12, folate, hemoglobin A1c and TSH which were within normal limits. Routine EEG on 02/03/2021: Preliminary report is the background slowing suggestive of moderate encephalopathy. There are no focal slowing, epileptiform discharges or seizure on the EEG. The son said he will hold off on MRI Brain and will consider when she follows-up with her neurologist as outpatient Recommend Yvonne scan to rule in or out essential tremor vs Parkinson's. This can be done as outpatient. Neuro checks Primary team place on Seroquel 12.5mg bid. Defer the rest of the medical management to primary team Upon discharge the patient needs to follow up with her neurologist (Dr. Salazar's team) within 1-2 weeks. Of note: Per son the patient does follow-up with a neurologist (Dr. Salazar's team) with his N.P. and she had a lumbar puncture in the past and has fluid drained and improved somewhat for 1-2 days and was back to her baseline. She was told she has borderline Alzheimer's dementia by her outpatient neurolo gist. She was tried on Sinement per the son brief and she got worse. The plan is discussed with the patient's son who is at bedside. Will follow-up with patient sporadically. Jhoan Stiles M.D. Neuro-hospitalist Time with Patient: Less than 30
[2021-02-03] MEDS: PRIMIDONE 50 MG TAB PO SCH (20:58)
[2021-02-04] MEDS: QUEtiapine 25 MG TAB PO SCH ×2 (10:24→20:34)
[2021-02-04] MEDS: HEPARIN SODIUM,PORCINE/PF 5,000 UNIT/0.5 ML SYRINGE SQ SCH ×3 (10:24→23:44)
[2021-02-04] MEDS: ATORVASTATIN 10 MG TAB PO SCH (10:25)
[2021-02-04] MEDS: amLODIPine 5 MG TAB PO SCH (10:25)
[2021-02-04] MEDS: CITALOPRAM HYDROBROMIDE 10 MG TAB PO SCH (10:25)
[2021-02-04] MEDS: DONEPEZIL 10 MG TAB PO SCH (10:25)
[2021-02-04] MEDS: PRIMIDONE 50 MG TAB PO SCH (20:34)
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
[2021-02-05 06:42] LABS: Basophils % (A) 0 %; Eosinophils # (A) 0.4 k/uL (0-0.7); Eosinophils % (A) 5 %; Lymphocytes % (A) 15 %; MCH 29.9 pg (25.0-35.0); MCHC 33.3 g/dL (31.0-37.0); MCV 89.8 fL (80.0-100.0); Mean Platelet Volume 9.1; Monocytes # (A) 0.3 k/uL (0-1.0); Monocytes % (A) 5 %; Neutrophils # (A) 4.7 k/uL (1.3-7.7); Neutrophils % (A) 72 %; Platelet Count 180 k/uL (150-450); RBC 4.34 m/uL (3.80-5.40); RDW 12.7 % (11.5-15.5); WBC 6.5 k/uL (3.8-10.6)
[2021-02-05] MEDS: QUEtiapine 25 MG TAB PO SCH ×2 (09:44→20:56)
[2021-02-05] MEDS: amLODIPine 5 MG TAB PO SCH (09:45)
[2021-02-05] MEDS: CITALOPRAM HYDROBROMIDE 10 MG TAB PO SCH (09:45)
[2021-02-05] MEDS: HEPARIN SODIUM,PORCINE/PF 5,000 UNIT/0.5 ML SYRINGE SQ SCH ×3 (09:46→23:10)
[2021-02-05] MEDS: DONEPEZIL 10 MG TAB PO SCH (09:46)
[2021-02-05] MEDS: ATORVASTATIN 10 MG TAB PO SCH (09:46)
[2021-02-05 11:11] VITALS: BMI 31.2
[2021-02-05 11:13] LABS: BUN/Creat Ratio 21.14 Ratio (12.00-20.00); Carbon Dioxide 22.3 mmol/L (21.6-31.8); Globulin 2.7 g/dL (1.6-3.3); Potassium 3.8 mmol/L (3.5-5.5)
[2021-02-05 11:14] LABS: African American GFR (CKD) 78.5 (60.0-200.0); Albumin 3.9 g/dL (3.8-4.9); Albumin/Globulin Ratio 1.42 (1.60-3.17); Blood Urea Nitrogen 17.1 mg/dL (9.0-27.0); Non-African American GFR(CKD) 67.7 (60.0-200.0); Total Bilirubin 0.4 mg/dL (0.30-1.20); Total Protein 6.6 g/dL (6.2-8.2)
[2021-02-05] MEDS: VANCOMYCIN ORAL SOLUTION 250 MG/5 ML BOTTLE PO SCH ×3 (15:13→23:11)
[2021-02-05] MEDS: CHERRY FLAVOR 60 ML BOTTLE PO PRN ×2 (15:13→23:11)
[2021-02-05] MEDS: PRIMIDONE 50 MG TAB PO SCH (20:56)
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
[2021-02-06] MEDS: CHERRY FLAVOR 60 ML BOTTLE PO PRN ×3 (05:43→17:33)
[2021-02-06] MEDS: VANCOMYCIN ORAL SOLUTION 250 MG/5 ML BOTTLE PO SCH ×3 (05:43→17:32)
[2021-02-06] MEDS: DONEPEZIL 10 MG TAB PO SCH (07:26)
[2021-02-06] MEDS: QUEtiapine 25 MG TAB PO SCH (07:26)
[2021-02-06] MEDS: ATORVASTATIN 10 MG TAB PO SCH (07:26)
[2021-02-06] MEDS: amLODIPine 5 MG TAB PO SCH (07:27)
[2021-02-06] MEDS: CITALOPRAM HYDROBROMIDE 10 MG TAB PO SCH (07:27)
[2021-02-06] MEDS: HEPARIN SODIUM,PORCINE/PF 5,000 UNIT/0.5 ML SYRINGE SQ SCH ×2 (07:27→16:25)
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
[2021-02-06] MEDS: PRIMIDONE 50 MG TAB PO SCH (20:52)
[2021-02-07] MEDS: QUEtiapine 25 MG TAB PO SCH ×2 (00:46→08:12)
[2021-02-07] MEDS: VANCOMYCIN ORAL SOLUTION 250 MG/5 ML BOTTLE PO SCH ×3 (00:55→12:40)
[2021-02-07] MEDS: HEPARIN SODIUM,PORCINE/PF 5,000 UNIT/0.5 ML SYRINGE SQ SCH ×3 (00:55→15:50)
[2021-02-07 08:12] LABS: Basophils % (A) 1 %; Eosinophils # (A) 0.3 k/uL (0-0.7); Eosinophils % (A) 5 %; HCT 38.7 % (34.0-46.0); HGB 12.9 gm/dL (11.4-16.0); Lymphocytes # (A) 1.1 k/uL (1.0-4.8); Lymphocytes % (A) 18 %; MCH 30.1 pg (25.0-35.0); MCHC 33.4 g/dL (31.0-37.0); MCV 90.2 fL (80.0-100.0); Mean Platelet Volume 9.5; Monocytes # (A) 0.3 k/uL (0-1.0); Monocytes % (A) 6 %; Neutrophils % (A) 68 %; Platelet Count 188 k/uL (150-450); RBC 4.29 m/uL (3.80-5.40); RDW 12.8 % (11.5-15.5); WBC 5.9 k/uL (3.8-10.6)
[2021-02-07] MEDS: amLODIPine 5 MG TAB PO SCH (08:12)
[2021-02-07] MEDS: CITALOPRAM HYDROBROMIDE 10 MG TAB PO SCH (08:12)
[2021-02-07] MEDS: DONEPEZIL 10 MG TAB PO SCH (08:12)
[2021-02-07] MEDS: ATORVASTATIN 10 MG TAB PO SCH (08:12)
[2021-02-07 08:27] LABS: African American GFR (CKD) 77 (>60 ml/min/1.73 sqM); Anion Gap 6 mmol/L; Blood Urea Nitrogen 18 mg/dL (7-17); Calcium 9.1 mg/dL (8.4-10.2); Carbon Dioxide 26 mmol/L (22-30); Chloride 104 mmol/L (98-107); Glucose 104 mg/dL (74-99); Non-African American GFR(CKD) 67 (>60 ml/min/1.73 sqM); Potassium 3.7 mmol/L (3.5-5.1); Sodium 136 mmol/L (137-145)
[2021-02-07 11:35] VITALS: BP 132/72; RESP 18; TEMP 97.8
[2021-02-07 13:22] VITALS: PULSE 72
--- NOTE | 2021-02-08 03:25 | P.DS ---
Providers Date of admission: 02/03/21 15:37 Expected date of discharge: 02/07/21 Attending physician: Steven Leach Consults: 02/01/21 22:52 Consult Physician Routine Consulting Provider: Maria D Moore Consult Reason/Comments: Altered Mental Status Do you want consulting provider notified?: Yes Primary care physician: Laura Perez Hospital Course: Final diagnosis Altered mental status likely delirium Possible acute urinary tract infection Clostridium difficile Uncontrolled hypertension Hyperlipidemia GERD Memory impairment/dementia History of thyroid nodule Obstructive sleep apnea not on CPAP at home History of COVID-19 infection in January 2020 Anxiety and bipolar disorder DVT prophylaxis Full code Discharge disposition Patient is being discharged in a stable condition with guarded prognosis to home and will continue with home care. Patient instructed to follow up with Dr. Laura Perez in the outpatient setting on discharge. Patient will continue on oral antibiotics in the form of vancomycin 4 times daily for the next 8 days to complete the course. Total time taken is greater than 35 minutes. Hospital course Patient is a 80-year-old female with a long history of hypertension, hyperlipidemia, GERD, asthma, memory impairment, obstructive sleep apnea not on CPAP, history of Covid pneumonia and known blood 2020, thyroid nodule and anxiety/agitated spells and dementia was brought to the hospital due to altered mental status and agitation. Patient was recently evaluated and was treated for acute urinary tract infection and discharged home with antibiotics. During the last 2 days patient has been becoming more angry and hits her . Patient took a walk in the neighborhood and was found 3 blocks from her home. She seems to be confused than usual. Patient was brought to the hospital for evaluation. Otherwise patient has been afebrile. No nausea vomiting or diarrhea. Denies abdominal pain. No neck pain or headache. Patient had falls over the last few weeks. No complaints of chest pain or shortness of breath. No cough or sputum production. CT head and cervical spine showed cerebral atrophy. No acute intracranial abnormality. Left-sided sphenoid sinusitis. No change compared to old exam. Cervical spondylitic changes. No fracture. Hip and pelvic x-ray showed negative pelvis and hip exam. No fracture. EKG showed sinus bradycardia with heart rate 59 Chest x-ray showed no active cardiopulmonary disease. Laboratory showed WBC 4.5 hemoglobin 12.8 and platelets 164 sodium 135, potassium 3.9, BUN 24 and creatinine 0.86 and blood glucose is 104 Lactic acid 0.711 ESR not elevated and TSH is 2.76 02/03/2021 Patient is lying in the bed. Still confused and altered mentation. Continued on antibiotics in the form of ceftriaxone. Patient has been afebrile. No nausea vomiting or diarrhea. Tolerating oral diet. Laboratory data showed WBC 3.6 hemoglobin 13.5 and platelets 190 and other lab data reviewed. Urine culture is pending. 02/04/2021 Patient is awake alert oriented x1-2. Still confused and delirious at times. No complaints of chest pain or shortness of breath. No headache or dizziness or lightheadedness. Patient has been afebrile. Tolerating oral diet. Patient is being continued on antibiotics in the form of ceftriaxone. Blood pressure is better controlled. PT OT will be consulted. 02/05/2021 Patient is currently resting in the bed comfortably. Awake alert and mentation seems to improve. Less agitated today. Encourage oral intake and also PT OT. Patient is unable to get out of bed. May need rehab transfer. Laboratory data showed WBC 6.5 hemoglobin 13.0 and platelets 180 electrolytes within normal limits. Current medications reviewed. 02/06/2021 Patient is seen and evaluated and follow-up continues to be confused with nursing staff at the bedside. Patient is having some loose stool although appears somewhat more formed and maintained on oral vancomycin as stool was positive for C. diff. PT/OT evaluating the patient with possible ECF and social work following as patient has been denied by [facility]. Other facilities reviewing for possible acceptance. Patient denies any abdominal discomfort and per nursing staff is eating and tolerating with no nausea or vomiting noted. Patient was maintained on IV antibiotics in the form of ceftriaxone for 3 days and will discontinue and will continue with oral vancomycin for a two-week course. 02/07/2021 Patient is seen in follow up today and will be discharged home with vanco oral for cdiff and will continue with for the next 8 days to complete the course. Patient will also continue on seroquel upon discharge. Patient will have home care and instructed to follow up with pcp and neurology outpatient. Currently no reports of chest pain, shortness of breath, or palpitations. Patient is afebrile. No reports of nausea or vomiting and patient is tolerating diet. Patient will be discharged home with family today. Guarded prognosis. General: This is an 80-year-old female sitting up in bed in no acute distress. Awake alert but confused and delirious at times HEENT: Normocephalic. Neck is supple. Pupils reactive. Nostrils clear. Oral cavity is moist. Neck reveals no JVD, carotid bruits, or thyromegaly. CHEST EXAMINATION: Trachea is central. Symmetrical expansion. Lung larsen clear to auscultation and percussion. CARDIAC: Normal S1, S2 with no gallops. No murmurs ABDOMEN: Soft. Bowel sounds normal. No organomegaly. No abdominal bruits. Extremities: reveal no edema. No clubbing or cyanosis Neurologically awake, alert, oriented x2 with well-coordinated movements. No gross focal deficits noted Skin: No rash or skin lesions. Psychiatric: Cooperative. Musculoskeletal: No joint swelling or deformity. Normal range of motion. Please refer to medication reconciliation sheet for further list of medications. Patient Condition at Discharge: Stable Plan - Discharge Summary New Discharge Prescriptions: New QUEtiapine [SEROquel] 12.5 mg PO BID #60 tab Vancomycin Oral Solution 125 mg PO Q6HR 8 Days ml Vancomycin HCl [Vancocin HCl] 125 mg PO Q6HR 8 Days #24 capsule Continue amLODIPine [Norvasc] 5 mg PO DAILY #30 tab Donepezil [Aricept] 10 mg PO DAILY Citalopram Hydrobromide [CeleXA] 10 mg PO DAILY Atorvastatin Calcium [Lipitor] 10 mg PO DAILY Primidone [Mysoline] 50 mg PO HS Discontinued Cephalexin [Keflex] 500 mg PO Q6HR #40 cap QUEtiapine FUMARATE [SEROquel] 25 mg PO BID Discharge Medication List amLODIPine [Norvasc] 5 mg PO DAILY #30 tab 12/24/14 [Rx] Citalopram Hydrobromide [CeleXA] 10 mg PO DAILY 06/09/20 [History] Donepezil [Aricept] 10 mg PO DAILY 06/09/20 [History] Atorvastatin Calcium [Lipitor] 10 mg PO DAILY 07/31/20 [History] Primidone [Mysoline] 50 mg PO HS 10/05/20 [History] QUEtiapine [SEROquel] 12.5 mg PO BID #60 tab 02/07/21 [Rx] Vancomycin HCl [Vancocin HCl] 125 mg PO Q6HR 8 Days #24 capsule 02/07/21 [Rx] Vancomycin Oral Solution 125 mg PO Q6HR 8 Days ml 02/07/21 [Rx] Follow up Appointment(s)/Referral(s): Laura Perez MD [Primary Care Provider] - 1-2 days [facility], [NON-STAFF] - 1 Week Patient Instructions/Handouts: C Diff (Clostridium Difficile) Infection (DC) Discharge Disposition: HOME WITH HOME HEALTH SERVICES
== END 2021-02-07 17:23 | disposition home health service (06) | DRG 690 ==
LOC: EC 18:25 → 5NMEDONC 22:29 → OBSVTOIN 02-03 15:37 → 5NMEDONC 02-04 16:22
PROVIDERS: ADMIT Hospitalist; ATTEND Hospitalist
DX: N39.0 Urinary tract infection, site not specified (principal); A04.72 Enterocolitis due to Clostridium difficile, not specified as recurrent; F05 Delirium due to known physiological condition; G30.9 Alzheimer's disease, unspecified; F02.80 Dementia in other diseases classified elsewhere, unspecified severity, without behavioral disturbance, psychotic disturbance, mood disturbance, and anxiety; F31.9 Bipolar disorder, unspecified; Z20.822 Contact with and (suspected) exposure to COVID-19; E78.5 Hyperlipidemia, unspecified; F41.9 Anxiety disorder, unspecified; J32.3 Chronic sphenoidal sinusitis; G25.0 Essential tremor; M47.812 Spondylosis without myelopathy or radiculopathy, cervical region; R00.1 Bradycardia, unspecified; K21.9 Gastro-esophageal reflux disease without esophagitis; I10 Essential (primary) hypertension; J45.909 Unspecified asthma, uncomplicated; M81.0 Age-related osteoporosis without current pathological fracture; G47.33 Obstructive sleep apnea (adult) (pediatric); N81.10 Cystocele, unspecified; R32 Unspecified urinary incontinence; Z79.899 Other long term (current) drug therapy; Z85.828 Personal history of other malignant neoplasm of skin; Z86.16 Personal history of COVID-19; Z90.710 Acquired absence of both cervix and uterus; Z90.49 Acquired absence of other specified parts of digestive tract; Z87.2 Personal history of diseases of the skin and subcutaneous tissue; Z87.42 Personal history of other diseases of the female genital tract; Z87.19 Personal history of other diseases of the digestive system; Z87.09 Personal history of other diseases of the respiratory system; Z96.60 Presence of unspecified orthopedic joint implant; Z86.73 Personal history of transient ischemic attack (TIA), and cerebral infarction without residual deficits; Z86.39 Personal history of other endocrine, nutritional and metabolic disease; Z87.440 Personal history of urinary (tract) infections; Z91.81 History of falling; Z98.890 Other specified postprocedural states; Z91.040 Latex allergy status; Z80.3 Family history of malignant neoplasm of breast; Z80.49 Family history of malignant neoplasm of other genital organs; Z80.0 Family history of malignant neoplasm of digestive organs
CPT/HCPCS: 36415; 70450; 71045; 72125; 73502; 80048; 80053; 81001; 83605; 83735; 84443; 84484; 85025; 85610; 85730; 87324; 87635; 93005; 95816; 99285